=== PATIENT | male | born 1930 | race Hispanic/Latino ===

== ENCOUNTER 2017-05-05 14:44 | Inpatient (IN) | payer MEDICARE, OTHER ==
[2017-05-05 14:56] VITALS: BMI 27.8
[2017-05-05 15:01] LABS: BASO # 0.03 K/mm3 (0.0-2.0); BASO % 0.3 % (0.0-3.0); EOS # 0.3 (0.0-0.7); EOS % 2.4 % (1.5-5.0); GRAN # 7.86 (1.4-6.5); HEMATOCRIT 38.8 % (42.0-52.0); LYMPH # 1.8 (1.2-3.4); MEAN CORPUSCULAR HEMOGLOBIN 29.7 pg (25.0-35.0); MEAN CORPUSCULAR HGB CONC 34.5 g/dl (31.0-37.0); MEAN PLATELET VOLUME 9.4 fl (7.0-11.0); MONO # 0.8 (0.1-0.6); MONO % 7.3 % (1.0-6.0); RED CELL DISTRIBUTION WIDTH 13.1 % (11.5-14.5); WHITE BLOOD COUNT 10.8 10^3/ul (4.5-11.0)
[2017-05-05 15:05] LABS: VENOUS BLOOD GAS BASE EXCESS 0.5 mmol/L (0.0-2.0)
[2017-05-05 15:09] LABS: ALB/GLOB RATIO 1.7 (1.1-1.8); ALKALINE PHOSPHATASE 93 U/L (38-126); ALT/SGPT 28 U/L (7-56); AST/SGOT 26 U/L (17-59); BILIRUBIN,TOTAL 0.5 mg/dL (0.2-1.3); BLOOD UREA NITROGEN 17 mg/dL (7-21); CALCIUM 9.3 mg/dL (8.4-10.5); CARBON DIOXIDE 23 mmol/L (21-33); CHLORIDE 102 mmol/L (98-107); GFR AFRICAN-AMERICAN > 60; GLUCOSE,RANDOM 160 mg/dL (70-110); POTASSIUM 3.7 mmol/L (3.6-5.0); SODIUM 136 mmol/L (132-148); TOTAL PROTEIN 6.8 g/dL (5.8-8.3)
--- NOTE | 2017-05-05 15:09 | RAD ---
HISTORY: tube placement COMPARISON: No prior. FINDINGS: LUNGS: No active pulmonary disease. PLEURA: No significant pleural effusion identified, no pneumothorax apparent. CARDIOVASCULAR: Normal. OSSEOUS STRUCTURES: No significant abnormalities. VISUALIZED UPPER ABDOMEN: Normal. OTHER FINDINGS: Endotracheal tube in satisfactory position IMPRESSION: No active disease.
[2017-05-05 15:19] LABS: INR 1.1 (0.93-1.08); PARTIAL THROMBOPLASTIN TIME 22.8 Seconds (25.1-36.5)
[2017-05-05 15:23] LABS: TROPONIN I < 0.01 ng/mL
[2017-05-05] MEDS ORDERED: Propofol 10 mg/ml 1,000 MG/100 ML VIAL IV PRN (15:25)
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
--- NOTE | 2017-05-05 15:28 | CT ---
PROCEDURE: CT HEAD WITHOUT CONTRAST. HISTORY: ams COMPARISON: None available. TECHNIQUE: Axial computed tomography images were obtained through the head/brain without intravenous contrast. Radiation dose: Total exam DLP = 814 mGy-cm. This CT exam was performed using one or more of the following dose reduction techniques: Automated exposure control, adjustment of the mA and/or kV according to patient size, and/or use of iterative reconstruction technique. FINDINGS: HEMORRHAGE: There is a massive intraparenchymal hemorrhage in the right hemisphere measuring 6.4 x 8.5 cm. This also extends into the violet. There is intraventricular hemorrhage. BRAIN: There is severe mass effect with 30 mm of midline shift to the left. The findings were discussed with Dr. Evans at 3:20 p.m. VENTRICLES: Intraventricular blood. Severe compression of the lateral ventricles CALVARIUM: Unremarkable. PARANASAL SINUSES: Unremarkable as visualized. No significant inflammatory changes. MASTOID AIR CELLS: Unremarkable as visualized. No inflammatory changes. OTHER FINDINGS: None. IMPRESSION: There is a massive intraparenchymal hemorrhage in the right hemisphere measuring 6.4 x 8.5 cm. This also extends into the violet. There is intraventricular hemorrhage.
[2017-05-05 15:34] LABS: CHOLESTEROL 241 mg/dL (130-200)
[2017-05-05] MEDS: Nicardipine 20 MG/200 ML 20 MG/200 ML BAG IV PRN ×3 (15:35→22:39)
[2017-05-05] MEDS ORDERED: Succinylcholine 200 mg/10 ml Inj IV STA (15:38)
[2017-05-05] MEDS ORDERED: Etomidate 20 mg/10ml Inj IVP STA (15:38)
[2017-05-05 15:51] LABS: ABG MECHANICAL RATE 15; ARTERIAL BLOOD GAS PH 7.34 (7.35-7.45); ATERIAL BLOOD GAS PEEP 5
[2017-05-05 15:55] LABS: PH,URINE 5.5 (4.7-8.0); URINE BILIRUBIN NEGATIVE (NEGATIVE); URINE BLOOD TRACE-INTACT (NEGATIVE); URINE GLUCOSE (UA) NEGATIVE (NEGATIVE); URINE KETONE TRACE mg/dL (NEGATIVE); URINE LEUKOCYTE ESTERASE NEGATIVE Leu/uL (NEGATIVE); URINE PROTEIN 30 mg/dL (<30 mg/dL); URINE UROBILINOGEN 0.2 E.U./dL (<1 E.U./dL)
[2017-05-05 15:59] LABS: URINE APPEARANCE CLEAR (CLEAR); URINE COLOR YELLOW (YELLOW)
[2017-05-05 16:00] LABS: URINE BACTERIA FEW (NEG); URINE EPITHELIAL CELLS 0 - 2 /hpf (0-5); URINE WBC 0 - 2 /hpf (0-6)
--- NOTE | 2017-05-05 16:35 | CP.PCM.CON ---
<Karsten Hein - Last Filed: 05/05/17 17:08> History of Present Illness - History of Present Illness History of Present Illness: Karsten Hein D.O. PGY-2, Critical Care Consultation Note 86 year old male with a PMH of HLD and "skin cancer" who presented [place] [facility] on 05/05/17 for complaints of altered mental status. Patient was intubated in the ER upon arrival. present at bedside states that he was at home by the neighbors on the floor at approximately 230pm. Patient at this time unable to provide any information. states that he is normally fully functional and was actually at the dermatologists office earlier today. Review of Systems - Review of Systems Systems not reviewed;Unavailable: Intubated Past Patient History - Infectious Disease Hx of Infectious Diseases: None - Tetanus Immunizations Tetanus Immunization: Up to Date - Past Social History Smoking Status: Never Smoked - HEMATOLOGICAL/ONCOLOGICAL Hx Cancer: Yes (prostate) - PSYCHIATRIC Hx Psychophysiologic Disorder: No Hx Anxiety: No Hx Bipolar Disorder: No Hx Depression: No Hx Emotional Abuse: No Hx Hallucinations: No Hx Panic Symptoms: No Hx Post Traumatic Stress Disorder: No Hx Psychosis: No Hx Physical Abuse: No Hx Schizophrenia: No Hx Sexual Abuse: No Hx Substance Use: No - SURGICAL HISTORY Other/Comment: hernia repair - ANESTHESIA Hx Anesthesia: Yes Hx Anesthesia Reactions: No Hx Malignant Hyperthermia: No Meds Allergies/Adverse Reactions: Allergies Allergy/AdvReac Type Severity Reaction Status Date / Time No Known Allergies Allergy Verified 04/21/13 14:16 - Medications Medications: Current Medications Nicardipine HCl (Cardene Iv Premix) 20 mg in 200 mls @ 50 mls/hr IV .Q4H PRN; Protocol; 5 MG/HR PRN Reason: TITRATE PER MD ORDER Last Admin: 05/05/17 15:35 Dose: 50 mls/hr Propofol (Diprivan) 1,000 mg in 100 mls @ 2.643 mls/hr IV .Q24H PRN; Protocol; 5 MCG/KG/MIN PRN Reason: TITRATE PER MD ORDER Last Admin: 05/05/17 15:48 Dose: 2.643 mls/hr Physical Exam - Constitutional Appears: Other (well developed, elderly male, intubated) - Head Exam Head Exam: ATRAUMATIC, NORMOCEPHALIC - Eye Exam Additional comments: fixed and dilated - ENT Exam ENT Exam: Mucous Membranes Moist - Neck Exam Additional comments: soft, supple - Respiratory Exam Respiratory Exam: Clear to Auscultation Bilateral. absent: Rales, Rhonchi, Wheezes - Cardiovascular Exam Cardiovascular Exam: RRR, +S1, +S2. absent: Gallop, Rubs - GI/Abdominal Exam GI & Abdominal Exam: Normal Bowel Sounds, Soft. absent: Distended - Extremities Exam Extremities exam: Positive for: normal capillary refill. Negative for: pedal edema - Neurological Exam Additional comments: intubated, not awake, not alert, not opening eyes to painful stimuli, not corneal reflex, pupils fixed and dilated ~5mm, gag reflex present, cough reflex present, no movement with painful stimuli to trunk or upper extremities, no tracking, withdraws to painful stimuli from BL LE, does not follow commands - Skin Skin Exam: Dry, Warm Results - Vital Signs Recent Vital Signs: Last Vital Signs Temp 97.1 F L 05/05/17 14:58 Pulse 87 05/05/17 15:35 Resp 18 05/05/17 14:50 BP 170/102 H 05/05/17 15:35 Pulse Ox 98 05/05/17 14:50 - Labs Result Diagrams: 05/05/17 14:55 05/05/17 14:55 Assessment & Plan - Assessment and Plan (Free Text) Assessment: 86 year old male with a PMH of HLD and "skin cancer" who presented to [facility] for altered mental status, intubated in the ER and found to have a massive intraparenchymal hemorrhage in the right hemispheres measuring 6.4 x 8.5cm extending into the violet with intraventricular hemorrhage. Plan: 1. Hemorrhagic stroke Head CT shows massive intraparenchymal hemorrhage in the right hemisphere measuring 6.4 x 8.5cm extending into violet with intraventricular hemorrhage Neuro consulted Neurosurgery consulted, states no surgical intervention indicated Will take to ICU for closer monitoring and tight blood pressure control Discussed at length with who stated that patient has a living will stating that he is DNR, order placed Neurochecks q4h x12 Continue propofol sedation and cardene for blood pressure control as BP 225/139 Intubated PRVC 400/15/5/40% 2. HLD Holding lipitor GI/DVT ppx: Protonix BID, SCDs Line: 20G R hand, 20G R AC Feed: npo, OG in place to intermittent suction García: in place, clear yellow urine Patient was seen and examined and case was discussed at length with attending physician. - Date & Time Date: 05/05/17 Time: 16:30 <Mike Atkins - Last Filed: 05/05/17 17:44> Meds - Medications Medications: Current Medications Nicardipine HCl (Cardene Iv Premix) 20 mg in 200 mls @ 50 mls/hr IV .Q4H PRN; Protocol; 5 MG/HR PRN Reason: TITRATE PER MD ORDER Last Admin: 05/05/17 15:35 Dose: 50 mls/hr Propofol (Diprivan) 1,000 mg in 100 mls @ 2.643 mls/hr IV .Q24H PRN; Protocol; 5 MCG/KG/MIN PRN Reason: TITRATE PER MD ORDER Last Admin: 05/05/17 15:48 Dose: 2.643 mls/hr Levetiracetam 750 mg/ Sodium (Chloride) 107.5 mls @ 460 mls/hr IV Q12 LENI Pantoprazole Sodium (Protonix Inj) 40 mg IVP Q12 LENI Results - Vital Signs Recent Vital Signs: Last Vital Signs Temp 97.1 F L 05/05/17 14:58 Pulse 87 05/05/17 15:35 Resp 18 05/05/17 14:50 BP 170/102 H 05/05/17 15:35 Pulse Ox 98 05/05/17 14:50 - Labs Result Diagrams: 05/05/17 14:55 05/05/17 14:55 Assessment & Plan - Assessment and Plan (Free Text) Plan: Patient seen and examined, case discussed with resident, agree with note, with following, additions/exceptions: Patient is 86yo male with PMhx of "skin cancer" presented with AMS. Last seen normal around noon today, CT Head revealed massive intraparenchymal hemorrhage in the right hemisphere measuring 6.4 x 8.5cm extending into violet with intraventricular hemorrhage. Neurosurgery consulted, no acute NSG intervention. Pt placed on cardene drip for BP control, Keppra IV for seizure ppx. Pt has advanced directives, as per the , and the patient is DNR. IPH, 3.4 x 8.5cm Hypertensive emergency HLD Recommend: - cont with vent support, ABG acceptable - no active ID issues - BP control, Cardene drip - confirm NGT placement - follow up Neurology, Neurosurgery - Keppra IV BID - Repeat CT Head in the AM - keep SBP<140 - GI ppx, PPI - DVT ppx, SCDs Critical care time 45 minutes
--- NOTE | 2017-05-05 17:01 | CP.PCM.CON ---
History of Present Illness - History of Present Illness History of Present Illness: Neurology consult note for Dr. Cartwright's service cc: altered mental status HPI: Patient is a 86yo male with past medical history of hyperlipidemia who was brought in by ambulance for altered mental status. Per chart and , patient was found unresponsive by his neighbors at around 14:30. Prior to that he was running errands including going to [employer] and to his dermatologists office. At baseline, gladys is a normally independent in his activites of daily living. Limited history available due to patient being intubated and sedated on evaluation. 12point ROS and full medical history unobtainable due to patient status. On evaluation in the ED, code stroke was called which revealed intraparenchymal hemorrhage in the right hemisphere measuring 6.4 x 8.5cm extending into violet with intraventricular hemorrhage, severe mass effect with 30mm of midline shift to the left. Past Patient History - Infectious Disease Hx of Infectious Diseases: None - Tetanus Immunizations Tetanus Immunization: Up to Date - Past Social History Smoking Status: Never Smoked - HEMATOLOGICAL/ONCOLOGICAL Hx Cancer: Yes (prostate) - PSYCHIATRIC Hx Psychophysiologic Disorder: No Hx Anxiety: No Hx Bipolar Disorder: No Hx Depression: No Hx Emotional Abuse: No Hx Hallucinations: No Hx Panic Symptoms: No Hx Post Traumatic Stress Disorder: No Hx Psychosis: No Hx Physical Abuse: No Hx Schizophrenia: No Hx Sexual Abuse: No Hx Substance Use: No - SURGICAL HISTORY Other/Comment: hernia repair - ANESTHESIA Hx Anesthesia: Yes Hx Anesthesia Reactions: No Hx Malignant Hyperthermia: No Meds Allergies/Adverse Reactions: Allergies Allergy/AdvReac Type Severity Reaction Status Date / Time No Known Allergies Allergy Verified 04/21/13 14:16 - Medications Medications: Current Medications Nicardipine HCl (Cardene Iv Premix) 20 mg in 200 mls @ 50 mls/hr IV .Q4H PRN; Protocol; 5 MG/HR PRN Reason: TITRATE PER MD ORDER Last Admin: 05/05/17 15:35 Dose: 50 mls/hr Propofol (Diprivan) 1,000 mg in 100 mls @ 2.643 mls/hr IV .Q24H PRN; Protocol; 5 MCG/KG/MIN PRN Reason: TITRATE PER MD ORDER Last Admin: 05/05/17 15:48 Dose: 2.643 mls/hr Physical Exam - Constitutional Appears: In Acute Distress - Head Exam Head Exam: ATRAUMATIC, NORMAL INSPECTION, NORMOCEPHALIC - Eye Exam Additional comments: pupils fixed and dilated 6mm no corneal reflex - ENT Exam ENT Exam: Mucous Membranes Moist - Neck Exam Neck exam: Positive for: Normal Inspection. Negative for: Lymphadenopathy, Tenderness, Thyromegaly - Respiratory Exam Respiratory Exam: Clear to Auscultation Bilateral. absent: Rales, Rhonchi, Wheezes - Cardiovascular Exam Cardiovascular Exam: RRR, +S1, +S2. absent: Gallop, JVD, Rubs - GI/Abdominal Exam GI & Abdominal Exam: Soft. absent: Distended, Firm, Guarding, Rebound, Tenderness - Neurological Exam Additional comments: intubated and sedated on propofol drip unresponsive to painful stimuli in the upper extremity babinski upward going bilaterally - Expanded Neurological Exam Expanded Cranial nerves: Gag Reflex: Normal Upper motor neuron: Babinski Sign: Abnormal Left, Abnormal Right Coma Scale Eye Opening: None Coma Scale Motor Response: None Coma Scale Verbal: None Coma Scale Total: 3 - Skin Skin Exam: Dry, Intact, Normal Color, Warm Results - Vital Signs Recent Vital Signs: Last Vital Signs Temp 97.1 F L 05/05/17 14:58 Pulse 87 05/05/17 15:35 Resp 18 05/05/17 14:50 BP 170/102 H 05/05/17 15:35 Pulse Ox 98 05/05/17 14:50 - Labs Result Diagrams: 05/05/17 14:55 05/05/17 14:55 Assessment & Plan - Assessment and Plan (Free Text) Plan: 86yo male with history of hyperlipidemia presents with altered mental status secondary to hemorrhagic stroke 1. Hemorrhagic stroke 2. Hyperlipidemia -Head CT reviewed; revealed intraparenchymal hemorrhage in the right hemisphere measuring 6.4 x 8.5cm extending into violet with intraventricular hemorrhage, midline shift of 30mm to the left -Neurosurgery consulted - no surgical intervention recommended at this time -Recommend continue with cardene drip to maintain SBP < 140 -Recommend continue with seizure prophylaxis with keppra -Neurochecks -Seizure precautions -Aspiration precautions -Prognosis guarded -Further recommendations as per Dr. Cartwright Patient seen and case discussed/reviewed with attending physician, Dr. Cartwright - Date & Time Date: 05/05/17 Time: 17:05
[2017-05-05] MEDS ORDERED: Pneumococcal 23-Valent Vaccine IM ONE (19:40)
[2017-05-05] MEDS ORDERED: Influenza Vaccine 60 mcg/0.5 mL SYR (4YR UP) IM ONE (19:40)
[2017-05-05 20:03] LABS: ARTERIAL BLOOD GAS HCO3 22.1 mmol/L (21-28); ARTERIAL BLOOD GAS PH 7.42 (7.35-7.45)
[2017-05-06] MEDS: Nicardipine 20 MG/200 ML 20 MG/200 ML BAG IV PRN ×4 (02:39→19:32)
[2017-05-06 06:25] LABS: BASO # 0.01 K/mm3 (0.0-2.0); BASO % 0.1 % (0.0-3.0); EOS % 0.2 % (1.5-5.0); GRAN # 11.99 (1.4-6.5); GRAN % 86.7 % (50.0-68.0); HEMATOCRIT 40.4 % (42.0-52.0); LYMPH # 0.7 (1.2-3.4); MEAN CELL VOLUME 87.1 fl (80.0-105.0); MEAN CORPUSCULAR HEMOGLOBIN 29.5 pg (25.0-35.0); MEAN CORPUSCULAR HGB CONC 33.9 g/dl (31.0-37.0); MEAN PLATELET VOLUME 9.4 fl (7.0-11.0); MONO # 1.1 (0.1-0.6); PLATELET COUNT 266 10^3/uL (120.0-450.0); RED CELL DISTRIBUTION WIDTH 13.5 % (11.5-14.5); WHITE BLOOD COUNT 13.8 10^3/ul (4.5-11.0)
[2017-05-06 06:45] LABS: ALB/GLOB RATIO 1.7 (1.1-1.8); ALKALINE PHOSPHATASE 81 U/L (38-126); ALT/SGPT 27 U/L (7-56); AST/SGOT 64 U/L (17-59); BILIRUBIN,TOTAL 0.8 mg/dL (0.2-1.3); BLOOD UREA NITROGEN 17 mg/dL (7-21); CALCIUM 9.2 mg/dL (8.4-10.5); CARBON DIOXIDE 27 mmol/L (21-33); CHLORIDE 103 mmol/L (95-110); GFR AFRICAN-AMERICAN > 60; GLUCOSE,RANDOM 169 mg/dL (70-110); POTASSIUM 4.7 mmol/L (3.6-5.0); SODIUM 138 mmol/L (132-148); TOTAL PROTEIN 6.6 g/dL (5.8-8.3)
[2017-05-06 06:56] VITALS: RESP 20
[2017-05-06 07:01] VITALS: TEMP 100.2
--- NOTE | 2017-05-06 07:02 | CP.PCM.PN ---
Subjective - Date & Time of Evaluation Date of Evaluation: 05/06/17 Time of Evaluation: 07:00 - Subjective Subjective: Documentation for Code Status: As per conversation with , who is the medical POA, the patient is DNR/DNI. Patient was intubated in the ED prior to being informed of the DNI status. Extensive conversation was conducted informing the of the significance of the DNR/DNI. confirms patients DNR status. Objective - Vital Signs/Intake and Output Vital Signs (last 24 hours): Temp Pulse Resp BP Pulse Ox 98.4 F 83 20 151/80 H 100 05/05/17 21:00 05/06/17 06:38 05/06/17 06:55 05/06/17 06:38 05/06/17 06:55 Intake and Output: 05/05/17 05/06/17 18:59 06:59 Intake Total 0 1936 Output Total 600 2500 Balance -600 -564 - Medications Medications: Current Medications Nicardipine HCl (Cardene Iv Premix) 20 mg in 200 mls @ 50 mls/hr IV .Q4H PRN; Protocol; 5 MG/HR PRN Reason: TITRATE PER MD ORDER Last Admin: 05/06/17 06:38 Dose: 5 mg/hr, 50 mls/hr Propofol (Diprivan) 1,000 mg in 100 mls @ 2.643 mls/hr IV .Q24H PRN; Protocol; 5 MCG/KG/MIN PRN Reason: TITRATE PER MD ORDER Last Admin: 05/05/17 15:48 Dose: 2.643 mls/hr Levetiracetam 750 mg/ Sodium (Chloride) 107.5 mls @ 460 mls/hr IV Q12 LENI Last Admin: 05/05/17 21:34 Dose: 460 mls/hr Potassium Chloride 20 meq/ (Sodium Chloride) 1,010 mls @ 50 mls/hr IV .[id number] [facility] Last Admin: 05/05/17 21:34 Dose: 50 mls/hr Ondansetron HCl (Zofran Inj) 4 mg IVP Q6H PRN PRN Reason: Nausea/Vomiting Last Admin: 05/06/17 06:36 Dose: 4 mg Pantoprazole Sodium (Protonix Inj) 40 mg IVP Q12 [facility] Last Admin: 05/05/17 21:03 Dose: 40 mg - Labs Labs: 05/06/17 05:00 PT 12.0 SECONDS (9.4-12.5) 05/05/17 14:55 INR 1.10 (0.93-1.08) H 05/05/17 14:55 APTT 22.8 Seconds (25.1-36.5) L 05/05/17 14:55
[2017-05-06 07:19] LABS: ARTERIAL BLOOD GAS HCO3 26.8 mmol/L (21-28); ARTERIAL BLOOD GAS O2 CAPACITY 19.1 mL/dl (16-24); ARTERIAL BLOOD GAS PH 7.48 (7.35-7.45); ARTERIAL BLOOD HGB O2 SAT 95.8 % (95.0-98.0); HHB 0.6 % (0-5); METHEMOGLOBIN 1.5 % (0.0-3.0)
--- NOTE | 2017-05-06 08:49 | CON ---
SUMMARY: I was asked to review a CAT scan of a patient who came in completely unresponsive, an 86-year-old gentleman, massive intracranial hemorrhage which extends throughout the entire deep right hemisphere into the violet and medulla. This is essentially incompatible with survival and I would absolutely not recommend any aggressive measures be taken. Unfortunately again, this patient is beyond salvaging. John Hansen MD
[2017-05-06 08:53] LABS: ANISOCYTOSIS SLIGHT; BAND 2 % (0-2); NEUTROPHIL 90 % (50.0-70.0); PLATELET ESTIMATE NORMAL (NORMAL)
[2017-05-06] MEDS ORDERED: POTASSIUM CH IV SCH (09:15)
[2017-05-06] MEDS ORDERED: D5W IV SCH (09:15)
[2017-05-06] MEDS ORDERED: SODIUM CHLORIDE IV SCH (09:15)
[2017-05-06] MEDS ORDERED: Sodium Chloride 0.9% 1,000 ML IV STA (09:24)
[2017-05-06 09:33] LABS: TROPONIN I 7.34 ng/mL
--- NOTE | 2017-05-06 09:42 | CP.PCM.CON ---
History of Present Illness - History of Present Illness History of Present Illness: Palliative consult requested by Dr Tevin Diaz Reason: Goals of care 86 year old male with history of prostate cancer and HLD who was found on the floor at home by his son. last had contact with him an hour and half before this event. Patient unresponsive and intubated upon arrival to ED. CT of the head showed a massive intraparenchymal hemorrhage in the right hemisphere measuring 6.4 X 8.5 cm, this extends to the violet, there is also intraventricular hemorrhage. Chest x ray negative for active disease. PMHx: prostate cancer s/p RT, skin cancer, HLD, back pain. Social History: Non smoker, occasional alcohol, no drug misuse. , lives with spouse and son. Family History: Non contributory. Advance Care Planning:The patient has an Advanced Directive at home. states he is DNR/DNI. 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 - MUSCULOSKELETAL/RHEUMATOLOGICAL Hx Falls: Yes (found on floor at home today) - PSYCHIATRIC Hx Psychophysiologic Disorder: No Hx Anxiety: No Hx Bipolar Disorder: No Hx Depression: No Hx Emotional Abuse: No Hx Hallucinations: No Hx Panic Symptoms: No Hx Post Traumatic Stress Disorder: No Hx Psychosis: No Hx Physical Abuse: No Hx Schizophrenia: No Hx Sexual Abuse: No Hx Substance Use: No - SURGICAL HISTORY Other/Comment: hernia repair - ANESTHESIA Hx Anesthesia: Yes Hx Anesthesia Reactions: No Hx Malignant Hyperthermia: No Meds Allergies/Adverse Reactions: Allergies Allergy/AdvReac Type Severity Reaction Status Date / Time No Known Allergies Allergy Verified 04/21/13 14:16 - Medications Medications: Current Medications Nicardipine HCl (Cardene Iv Premix) 20 mg in 200 mls @ 50 mls/hr IV .Q4H PRN; Protocol; 5 MG/HR PRN Reason: TITRATE PER MD ORDER Last Admin: 05/06/17 06:38 Dose: 5 mg/hr, 50 mls/hr Propofol (Diprivan) 1,000 mg in 100 mls @ 2.643 mls/hr IV .Q24H PRN; Protocol; 5 MCG/KG/MIN PRN Reason: TITRATE PER MD ORDER Last Admin: 05/05/17 15:48 Dose: 2.643 mls/hr Levetiracetam 750 mg/ Sodium (Chloride) 107.5 mls @ 460 mls/hr IV Q12 [facility]ENI Last Admin: 05/05/17 21:34 Dose: 460 mls/hr Potassium Chloride 20 meq/ (Sodium Chloride) 1,010 mls @ 100 mls/hr IV .Q10H6M LENI Sodium Chloride (Sodium Chloride 0.9%) 1,000 mls @ 999 mls/hr IV .Q1H1M STA Stop: 05/06/17 10:24 Desmopressin Acetate 1 mcg/ (Sodium Chloride) 50.25 mls @ 100 mls/hr IV ONCE ONE Stop: 05/06/17 09:53 Ondansetron HCl (Zofran Inj) 4 mg IVP Q6H PRN PRN Reason: Nausea/Vomiting Last Admin: 05/06/17 06:36 Dose: 4 mg Pantoprazole Sodium (Protonix Inj) 40 mg IVP Q12 LENI Last Admin: 05/05/17 21:03 Dose: 40 mg Physical Exam - Constitutional Appears: Chronically Ill - Head Exam Head Exam: NORMAL INSPECTION - Eye Exam Eye Exam: Normal appearance, PERRL - ENT Exam ENT Exam: Mucous Membranes Moist - Neck Exam Neck exam: Positive for: Normal Inspection - Respiratory Exam Respiratory Exam: Decreased Breath Sounds - Cardiovascular Exam Cardiovascular Exam: REGULAR RHYTHM, +S1 - GI/Abdominal Exam GI & Abdominal Exam: Normal Bowel Sounds, Soft - Extremities Exam Extremities exam: Positive for: normal inspection, pedal pulses present - Back Exam Back exam: NORMAL INSPECTION - Neurological Exam Neurological exam: Altered - Skin Skin Exam: Dry, Warm - Additional Findings Additional findings: Palliative performance scale rating 10% Results - Vital Signs Recent Vital Signs: Last Vital Signs Temp 100.2 F H 05/06/17 04:00 Pulse 83 05/06/17 06:38 Resp 20 05/06/17 06:55 BP 151/80 H 05/06/17 06:38 Pulse Ox 100 05/06/17 06:55 - Labs Result Diagrams: 05/06/17 05:00 05/06/17 05:00 Labs: Laboratory Results - last 24 hr 05/05/17 05/05/17 05/06/17 17:45 20:00 05:00 WBC RBC Hgb Hct MCV MCH MCHC RDW Plt Count MPV Gran % Lymph % (Auto) [place] % (Auto) Eos % (Auto) Baso % (Auto) Gran # Lymph # [place] # Eos # Baso # Neutrophils % (Manual) Band Neutrophils % Lymphocytes % (Manual) Monocytes % (Manual) Platelet Evaluation Anisocytosis (manual) pCO2 34 L pO2 148.0 H HCO3 22.1 ABG pH 7.42 ABG Total CO2 23.1 ABG O2 Saturation 99.5 H ABG O2 Content ABG Base Excess -1.7 ABG Hemoglobin ABG Carboxyhemoglobin POC ABG HHb (Measured) ABG Methemoglobin ABG O2 Capacity ABG Potassium 3.7 Hgb O2 Saturation Sodium 135.0 138 Chloride 103.0 103 Glucose 214 H Lactate 4.0 H* FiO2 40.0 Potassium 4.7 Carbon Dioxide 27 Anion Gap 13 BUN 17 Creatinine 1.0 Est GFR ( Amer) > 60 Est GFR (Non-Af Amer) > 60 Random Glucose 169 H Calcium 9.2 Total Bilirubin 0.8 AST 64 H D ALT 27 Alkaline Phosphatase 81 Troponin I 7.34 H* D Total Protein 6.6 Albumin 4.2 Globulin 2.5 Albumin/Globulin Ratio 1.7 Arterial Blood Potassium 3.7 Blood Type Confirm O POSITIVE 05/06/17 05/06/17 05:00 05:30 WBC 13.8 H D RBC 4.64 Hgb 13.7 L Hct 40.4 L MCV 87.1 MCH 29.5 MCHC 33.9 RDW 13.5 Plt Count 266 MPV 9.4 Gran % 86.7 H Lymph % (Auto) 5.0 L [place] % (Auto) 8.0 H Eos % (Auto) 0.2 L Baso % (Auto) 0.1 Gran # 11.99 H Lymph # 0.7 L [place] # 1.1 H Eos # 0.0 Baso # 0.01 Neutrophils % (Manual) 90 H Band Neutrophils % 2 Lymphocytes % (Manual) 4 L Monocytes % (Manual) 4 Platelet Evaluation Normal Anisocytosis (manual) Slight pCO2 36 pO2 152.0 H HCO3 26.8 ABG pH 7.48 H ABG Total CO2 27.9 ABG O2 Saturation 99.4 H ABG O2 Content 19.0 ABG Base Excess 3.4 H ABG Hemoglobin 13.9 ABG Carboxyhemoglobin 2.0 H POC ABG HHb (Measured) 0.6 ABG Methemoglobin 1.5 ABG O2 Capacity 19.1 ABG Potassium Hgb O2 Saturation 95.8 Sodium Chloride Glucose Lactate FiO2 40.0 Potassium Carbon Dioxide Anion Gap BUN Creatinine Est GFR ( Amer) Est GFR (Non-Af Amer) Random Glucose Calcium Total Bilirubin AST ALT Alkaline Phosphatase Troponin I Total Protein Albumin Globulin Albumin/Globulin Ratio Arterial Blood Potassium Blood Type Confirm Assessment & Plan - Assessment and Plan (Free Text) Assessment: 86 year old male with history of HLD, prostate cancer was found unresponsive at home. Found to have a massive intraparenchymal hemorrhage in the right hemisphere which extends onto the violet, there is also intaventricular hemorrhage. The patient's is at bedside. She is aware of the extent of patients brain injury. She expressed that her has Living Will and that he would not want to be kept alive on respirator and with feeding tube. Extensive discussion ensued involving future goals of care. Patients awaiting her children to come She wants there input before making any decision regarding his care. I later met with patients , daughter and son. Family has spoken with neurologist and understands the gravity of patients situation. Family wants to wait 24 hours before making decision regarding goals of care and extubation. Psychosocial support given. 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 Time spent with family in goals of care discussion and advance care planning, 40 minutes Plan: Palliative support Advance care planning
--- NOTE | 2017-05-06 09:52 | CARD ---
APPROVED REPORT EKG Measurement Heart [id number] <Conclusion> Sinus rhythm with premature supraventricular complexes LAD STTW changes
--- NOTE | 2017-05-06 10:06 | RAD ---
HISTORY: intubated COMPARISON: 05/05/2017 FINDINGS: LUNGS: No active pulmonary disease. PLEURA: No significant pleural effusion identified, no pneumothorax apparent. CARDIOVASCULAR: Normal. OSSEOUS STRUCTURES: No significant abnormalities. VISUALIZED UPPER ABDOMEN: Normal. OTHER FINDINGS: Endotracheal tube and nasogastric tube in satisfactory position IMPRESSION: No active disease.
--- NOTE | 2017-05-06 10:54 | CP.CCUPN ---
<Jez Moreno - Last Filed: 05/06/17 10:40> CCU Subjective - Physician Review Subjective (Free Text): Subjective: Patient seen and examined at bedside. Resting comfortably in bed. Experienced several bouts of nonbloody nonbilious emesis throughout the night. ROS cannot be attained at this time due to altered mental status. Physical Examination: - Constitutional Appears: In Acute Distress - Head Exam Head Exam: ATRAUMATIC, NORMAL INSPECTION, NORMOCEPHALIC - Eye Exam Additional comments: pupils fixed and dilated 6mm no corneal reflex bilaterally - ENT Exam ENT Exam: Mucous Membranes Moist - Neck Exam Neck exam: Positive for: Normal Inspection. Negative for: Lymphadenopathy, Tenderness, Thyromegaly - Respiratory Exam Respiratory Exam: Clear to Auscultation Bilateral. absent: Rales, Rhonchi, Wheezes - Cardiovascular Exam Cardiovascular Exam: RRR, +S1, +S2. absent: Gallop, JVD, Rubs - GI/Abdominal Exam GI & Abdominal Exam: Soft. absent: Distended, Firm, Guarding, Rebound, Tenderness - Neurological Exam Additional comments: intubated and sedated on propofol drip unresponsive to painful stimuli in the upper extremity responsive to painful stimuli in the lower extremity - Skin Skin Exam: Dry, Intact, Normal Color, Warm Assessment and Plan: 86 year old male with a PMH of HLD and "skin cancer" who presented to [facility] ER for altered mental status, intubated in the ER and found to have a massive intraparenchymal hemorrhage in the right hemispheres measuring 6.4 x 8.5cm extending into the violet with intraventricular hemorrhage. Hemorrhagic stroke - Head CT shows massive intraparenchymal hemorrhage in the right hemisphere measuring 6.4 x 8.5cm extending into violet with intraventricular hemorrhage - Neuro consulted- appreciate recs - Neurosurgery consulted, states no surgical intervention indicated - As per , the patient has a living will stating that he is DNR, order placed, states she will meet with children and decide the next plan of action - Neurochecks q4h x12 - Continue propofol sedation - Intubated PRVC 400/15/5/45% - Continue cardene and keppra Diabetes Inspidius - UO increase overnight in to the morning - given 1 liter NS bolus - ddavp ordered - continue to monitor urine output Elevated Troponins - from <0.01 to 7.34, likely neurogenic trops vs NSTEMI - patient is not a candidate for anticoagulation due to intraparenchymal hemorrhage - ECHO ordered and appreciated - EKG stat- will be reviewed and appreciated - will consider cardiology consult pending family's decision HLD - Holding lipitor due to transaminitis Prophylaxis - Protonix BID - SCDs Line: 20G R hand, 20G R AC Feed: npo, OG in place to intermittent suction García: in place, clear yellow urine Patient seen, case discussed with, and plan approved by attending physician, Dr. Atkins. 05/06/17 10:54 CCU Objective - Vital Signs / Intake & Output Vital Signs (Last 4 hours): Vital Signs Resp Pulse Ox 05/06/17 06:55 20 100 Intake and Output (Last 8hrs): Intake & Output 05/05/17 05/06/17 05/06/17 22:59 06:59 14:59 Intake Total 1536 400 Output Total 3100 Balance -1564 400 Weight 194 lb 3.2 oz Intake: IV 1536 400 Right Antecubital 1300 Right Hand 36 Oral 0 Output: Urine 2800 Urethral (García) 2800 Emesis 300 Other: Voiding Method Indwelling Catheter # Bowel Movements 0 - Physical Exam Head: Positive for: Atraumatic, Normocephalic Pupils: Positive for: Other ((+)right pupil dilated) Conjunctiva: Positive for: Normal Mouth: Positive for: Moist Mucous Membranes Respiratory/Chest: Positive for: Clear to Auscultation Cardiovascular: Positive for: Regular Rate and Rhythm Abdomen: Negative for: Tenderness, Distention Neurological: Positive for: Other ((+)unresponsive, (+)snoring resp (+)corneal reflex (+)gag reflex). Negative for: Motor Func Grossly Intact - Medications Active Medications: Active Medications Generic Name Dose Route Start Last Admin Trade Name Freq PRN Reason Stop Dose Admin Nicardipine HCl 20 mg in 200 mls @ 50 mls/hr 05/05/17 15:14 05/06/17 06:38 Cardene Iv Premix IV 5 mg/hr .Q4H PRN 50 mls/hr TITRATE PER MD ORDER Administration Protocol 5 MG/HR Propofol 1,000 mg in 100 mls @ 2.643 mls/hr 05/05/17 15:25 05/05/17 15:48 Diprivan IV 2.643 mls/hr .Q24H PRN Administration TITRATE PER MD ORDER Protocol 5 MCG/KG/MIN Levetiracetam 750 mg/ Sodium 107.5 mls @ 460 mls/hr 05/05/17 22:00 05/06/17 10:03 Chloride IV 460 mls/hr Q12 LENI Administration Potassium Chloride 20 meq/ 1,010 mls @ 100 mls/hr 05/06/17 09:15 Sodium Chloride IV .Q10H6M LENI Ondansetron HCl 4 mg 05/05/17 19:52 05/06/17 06:36 Zofran Inj IVP 4 mg Q6H PRN Administration Nausea/Vomiting Pantoprazole Sodium 40 mg 05/05/17 22:00 05/06/17 09:55 Protonix Inj IVP 40 mg Q12 LENI Administration - Patient Studies Lab Studies: Lab Studies 05/06/17 05/06/17 05/06/17 Range/Units 05:30 05:00 05:00 WBC 13.8 H D (4.5-11.0) 10^3/ul RBC 4.64 (3.5-6.1) 10^6/uL Hgb 13.7 L (14.0-18.0) g/dL Hct 40.4 L (42.0-52.0) % MCV 87.1 (80.0-105.0) fl MCH 29.5 (25.0-35.0) pg MCHC 33.9 (31.0-37.0) g/dl RDW 13.5 (11.5-14.5) % Plt Count 266 (120.0-450.0) 10^3/uL MPV 9.4 (7.0-11.0) fl Gran % 86.7 H (50.0-68.0) % Lymph % (Auto) 5.0 L (22.0-35.0) % [place] % (Auto) 8.0 H (1.0-6.0) % Eos % (Auto) 0.2 L (1.5-5.0) % Baso % (Auto) 0.1 (0.0-3.0) % Gran # 11.99 H (1.4-6.5) Lymph # 0.7 L (1.2-3.4) [place] # 1.1 H (0.1-0.6) Eos # 0.0 (0.0-0.7) Baso # 0.01 (0.0-2.0) K/mm3 Neutrophils % (Manual) 90 H (50.0-70.0) % Band Neutrophils % 2 (0-2) % Lymphocytes % (Manual) 4 L (22.0-35.0) % Monocytes % (Manual) 4 (1.0-6.0) % Platelet Evaluation Normal (NORMAL) Anisocytosis (manual) Slight pCO2 36 (35-45) mm/Hg pO2 152.0 H (80-100) mm/Hg HCO3 26.8 (21-28) mmol/L ABG pH 7.48 H (7.35-7.45) ABG Total CO2 27.9 (22-28) mmol.L ABG O2 Saturation 99.4 H (95-98) % ABG O2 Content 19.0 (15-23) ML/dl ABG Base Excess 3.4 H (-2.0-3.0) mmol/L ABG Hemoglobin 13.9 (11.7-17.4) g/dL ABG Carboxyhemoglobin 2.0 H (0.5-1.5) % POC ABG HHb (Measured) 0.6 (0-5) % ABG Methemoglobin 1.5 (0.0-3.0) % ABG O2 Capacity 19.1 (16-24) mL/dl ABG Potassium (3.6-5.2) mmol/L Hgb O2 Saturation 95.8 (95.0-98.0) % Sodium 138 (132-148) mmol/L Chloride 103 (98-107) mmol/L Glucose (75-110) mg/dl Lactate (0.7-2.1) mmol/L FiO2 40.0 % Potassium 4.7 (3.6-5.0) mmol/L Carbon Dioxide 27 (21-33) mmol/L Anion Gap 13 (10-20) BUN 17 (7-21) mg/dL Creatinine 1.0 (0.8-1.5) mg/dL Est GFR ( Amer) > 60 Est GFR (Non-Af Amer) > 60 Random Glucose 169 H (70-110) mg/dL Calcium 9.2 (8.4-10.5) mg/dL Total Bilirubin 0.8 (0.2-1.3) mg/dL AST 64 H D (17-59) U/L ALT 27 (7-56) U/L Alkaline Phosphatase 81 (38-126) U/L Troponin I 7.34 H* D ng/mL Total Protein 6.6 (5.8-8.3) g/dL Albumin 4.2 (3.0-4.8) g/dL Globulin 2.5 gm/dL Albumin/Globulin Ratio 1.7 (1.1-1.8) Arterial Blood Potassium (3.6-5.2) mmol/L Blood Type Confirm 05/05/17 05/05/17 Range/Units 20:00 17:45 WBC (4.5-11.0) 10^3/ul RBC (3.5-6.1) 10^6/uL Hgb (14.0-18.0) g/dL Hct (42.0-52.0) % MCV (80.0-105.0) fl MCH (25.0-35.0) pg MCHC (31.0-37.0) g/dl RDW (11.5-14.5) % Plt Count (120.0-450.0) 10^3/uL MPV (7.0-11.0) fl Gran % (50.0-68.0) % Lymph % (Auto) (22.0-35.0) % [place] % (Auto) (1.0-6.0) % Eos % (Auto) (1.5-5.0) % Baso % (Auto) (0.0-3.0) % Gran # (1.4-6.5) Lymph # (1.2-3.4) [place] # (0.1-0.6) Eos # (0.0-0.7) Baso # (0.0-2.0) K/mm3 Neutrophils % (Manual) (50.0-70.0) % Band Neutrophils % (0-2) % Lymphocytes % (Manual) (22.0-35.0) % Monocytes % (Manual) (1.0-6.0) % Platelet Evaluation (NORMAL) Anisocytosis (manual) pCO2 34 L (35-45) mm/Hg pO2 148.0 H (80-100) mm/Hg HCO3 22.1 (21-28) mmol/L ABG pH 7.42 (7.35-7.45) ABG Total CO2 23.1 (22-28) mmol.L ABG O2 Saturation 99.5 H (95-98) % ABG O2 Content (15-23) ML/dl ABG Base Excess -1.7 (-2.0-3.0) mmol/L ABG Hemoglobin (11.7-17.4) g/dL ABG Carboxyhemoglobin (0.5-1.5) % POC ABG HHb (Measured) (0-5) % ABG Methemoglobin (0.0-3.0) % ABG O2 Capacity (16-24) mL/dl ABG Potassium 3.7 (3.6-5.2) mmol/L Hgb O2 Saturation (95.0-98.0) % Sodium 135.0 (132-148) mmol/L Chloride 103.0 (98-107) mmol/L Glucose 214 H (75-110) mg/dl Lactate 4.0 H* (0.7-2.1) mmol/L FiO2 40.0 % Potassium (3.6-5.0) mmol/L Carbon Dioxide (21-33) mmol/L Anion Gap (10-20) BUN (7-21) mg/dL Creatinine (0.8-1.5) mg/dL Est GFR ( Amer) Est GFR (Non-Af Amer) Random Glucose (70-110) mg/dL Calcium (8.4-10.5) mg/dL Total Bilirubin (0.2-1.3) mg/dL AST (17-59) U/L ALT (7-56) U/L Alkaline Phosphatase (38-126) U/L Troponin I ng/mL Total Protein (5.8-8.3) g/dL Albumin (3.0-4.8) g/dL Globulin gm/dL Albumin/Globulin Ratio (1.1-1.8) Arterial Blood Potassium 3.7 (3.6-5.2) mmol/L Blood Type Confirm O POSITIVE Laboratory Results - last 24 hr 10/23/17 10/23/17 10/24/17 17:45 20:00 05:00 WBC RBC Hgb Hct MCV MCH MCHC RDW Plt Count MPV Gran % Lymph % (Auto) [place] % (Auto) Eos % (Auto) Baso % (Auto) Gran # Lymph # [place] # Eos # Baso # Neutrophils % (Manual) Band Neutrophils % Lymphocytes % (Manual) Monocytes % (Manual) Platelet Evaluation Anisocytosis (manual) pCO2 34 L pO2 148.0 H HCO3 22.1 ABG pH 7.42 ABG Total CO2 23.1 ABG O2 Saturation 99.5 H ABG O2 Content ABG Base Excess -1.7 ABG Hemoglobin ABG Carboxyhemoglobin POC ABG HHb (Measured) ABG Methemoglobin ABG O2 Capacity ABG Potassium 3.7 Hgb O2 Saturation Sodium 135.0 138 Chloride 103.0 103 Glucose 214 H Lactate 4.0 H* FiO2 40.0 Potassium 4.7 Carbon Dioxide 27 Anion Gap 13 BUN 17 Creatinine 1.0 Est GFR ( Amer) > 60 Est GFR (Non-Af Amer) > 60 Random Glucose 169 H Calcium 9.2 Total Bilirubin 0.8 AST 64 H D ALT 27 Alkaline Phosphatase 81 Troponin I 7.34 H* D Total Protein 6.6 Albumin 4.2 Globulin 2.5 Albumin/Globulin Ratio 1.7 Arterial Blood Potassium 3.7 Blood Type Confirm O POSITIVE 05/06/17 05/06/17 05:00 05:30 WBC 13.8 H D RBC 4.64 Hgb 13.7 L Hct 40.4 L MCV 87.1 MCH 29.5 MCHC 33.9 RDW 13.5 Plt Count 266 MPV 9.4 Gran % 86.7 H Lymph % (Auto) 5.0 L [place] % (Auto) 8.0 H Eos % (Auto) 0.2 L Baso % (Auto) 0.1 Gran # 11.99 H Lymph # 0.7 L [place] # 1.1 H Eos # 0.0 Baso # 0.01 Neutrophils % (Manual) 90 H Band Neutrophils % 2 Lymphocytes % (Manual) 4 L Monocytes % (Manual) 4 Platelet Evaluation Normal Anisocytosis (manual) Slight pCO2 36 pO2 152.0 H HCO3 26.8 ABG pH 7.48 H ABG Total CO2 27.9 ABG O2 Saturation 99.4 H ABG O2 Content 19.0 ABG Base Excess 3.4 H ABG Hemoglobin 13.9 ABG Carboxyhemoglobin 2.0 H POC ABG HHb (Measured) 0.6 ABG Methemoglobin 1.5 ABG O2 Capacity 19.1 ABG Potassium Hgb O2 Saturation 95.8 Sodium Chloride Glucose Lactate FiO2 40.0 Potassium Carbon Dioxide Anion Gap BUN Creatinine Est GFR ( Amer) Est GFR (Non-Af Amer) Random Glucose Calcium Total Bilirubin AST ALT Alkaline Phosphatase Troponin I Total Protein Albumin Globulin Albumin/Globulin Ratio Arterial Blood Potassium Blood Type Confirm <Mike Atkins - Last Filed: 05/06/17 12:01> CCU Subjective - Physician Review Subjective (Free Text): 05/06/17 11:55 Patient seen and examined, case discussed with resident, agree with note, with following, additions/exceptions: Patient is 86yo male with PMhx of "skin cancer" presented with AMS. CT Head revealed massive intraparenchymal hemorrhage in the right hemisphere measuring 6.4 x 8.5cm extending into violet with intraventricular hemorrhage. Neurosurgery consulted, no acute NSG intervention. Pt placed on cardene drip for BP control, Keppra IV for seizure ppx. Pt has advanced directives, as per the , and the patient is DNR. Patients troponin 7 today, EKG without ischemic changes, will get echo, and cardiology consult. Seen by palliative care today, patients awaiting for her children to come in to have a discussion. As per my discussion with the , the patient would not have wanted CPR, or any invasive procedures or be prolonged on the ventilator, with artificial feeding. IPH, with intraventricular hemorrhage Hypertensive emergency HLD Elevated troponin Recommend: - cont with vent support, ABG acceptable - no active ID issues - BP control, Cardene drip - follow up Neurology, Neurosurgery - Keppra IV BID - keep SBP<140 - keep HOB elevated - Na >145 - ECHO - cardiology eval - Palliative care follow up - GI ppx, PPI - DVT ppx, SCDs - extremely poor prognosis - Patient is DNR CCU Objective - Vital Signs / Intake & Output Intake and Output (Last 8hrs): Intake & Output 05/05/17 05/06/17 05/06/17 22:59 06:59 14:59 Intake Total 1536 400 Output Total 3100 Balance -1564 400 Weight 194 lb 3.2 oz Intake: IV 1536 400 Right Antecubital 1300 Right Hand 36 Oral 0 Output: Urine 2800 Urethral (Gracía) 2800 Emesis 300 Other: Voiding Method Indwelling Catheter # Bowel Movements 0 - Medications Active Medications: Active Medications Generic Name Dose Route Start Last Admin Trade Name Freq PRN Reason Stop Dose Admin Nicardipine HCl 20 mg in 200 mls @ 50 mls/hr 05/05/17 15:14 05/06/17 06:38 Cardene Iv Premix IV 5 mg/hr .Q4H PRN 50 mls/hr TITRATE PER MD ORDER Administration Protocol 5 MG/HR Propofol 1,000 mg in 100 mls @ 2.643 mls/hr 05/05/17 15:25 05/05/17 15:48 Diprivan IV 2.643 mls/hr .Q24H PRN Administration TITRATE PER MD ORDER Protocol 5 MCG/KG/MIN Levetiracetam 750 mg/ Sodium 107.5 mls @ 460 mls/hr 05/05/17 22:00 05/06/17 10:03 Chloride IV 460 mls/hr Q12 LENI Administration Potassium Chloride 20 meq/ 1,010 mls @ 100 mls/hr 05/06/17 09:15 Sodium Chloride IV .Q10H6M LENI Ondansetron HCl 4 mg 05/05/17 19:52 05/06/17 06:36 Zofran Inj IVP 4 mg Q6H PRN Administration Nausea/Vomiting Pantoprazole Sodium 40 mg 05/05/17 22:00 05/06/17 09:55 Protonix Inj IVP 40 mg Q12 LENI Administration - Patient Studies Lab Studies: Lab Studies 05/06/17 05/06/17 05/06/17 Range/Units 05:30 05:00 05:00 WBC 13.8 H D (4.5-11.0) 10^3/ul RBC 4.64 (3.5-6.1) 10^6/uL Hgb 13.7 L (14.0-18.0) g/dL Hct 40.4 L (42.0-52.0) % MCV 87.1 (80.0-105.0) fl MCH 29.5 (25.0-35.0) pg MCHC 33.9 (31.0-37.0) g/dl RDW 13.5 (11.5-14.5) % Plt Count 266 (120.0-450.0) 10^3/uL MPV 9.4 (7.0-11.0) fl Gran % 86.7 H (50.0-68.0) % Lymph % (Auto) 5.0 L (22.0-35.0) % [place] % (Auto) 8.0 H (1.0-6.0) % Eos % (Auto) 0.2 L (1.5-5.0) % Baso % (Auto) 0.1 (0.0-3.0) % Gran # 11.99 H (1.4-6.5) Lymph # 0.7 L (1.2-3.4) [place] # 1.1 H (0.1-0.6) Eos # 0.0 (0.0-0.7) Baso # 0.01 (0.0-2.0) K/mm3 Neutrophils % (Manual) 90 H (50.0-70.0) % Band Neutrophils % 2 (0-2) % Lymphocytes % (Manual) 4 L (22.0-35.0) % Monocytes % (Manual) 4 (1.0-6.0) % Platelet Evaluation Normal (NORMAL) Anisocytosis (manual) Slight pCO2 36 (35-45) mm/Hg pO2 152.0 H (80-100) mm/Hg HCO3 26.8 (21-28) mmol/L ABG pH 7.48 H (7.35-7.45) ABG Total CO2 27.9 (22-28) mmol.L ABG O2 Saturation 99.4 H (95-98) % ABG O2 Content 19.0 (15-23) ML/dl ABG Base Excess 3.4 H (-2.0-3.0) mmol/L ABG Hemoglobin 13.9 (11.7-17.4) g/dL ABG Carboxyhemoglobin 2.0 H (0.5-1.5) % POC ABG HHb (Measured) 0.6 (0-5) % ABG Methemoglobin 1.5 (0.0-3.0) % ABG O2 Capacity 19.1 (16-24) mL/dl ABG Potassium (3.6-5.2) mmol/L Hgb O2 Saturation 95.8 (95.0-98.0) % Sodium 138 (132-148) mmol/L Chloride 103 (98-107) mmol/L Glucose (75-110) mg/dl Lactate (0.7-2.1) mmol/L FiO2 40.0 % Potassium 4.7 (3.6-5.0) mmol/L Carbon Dioxide 27 (21-33) mmol/L Anion Gap 13 (10-20) BUN 17 (7-21) mg/dL Creatinine 1.0 (0.8-1.5) mg/dL Est GFR ( Amer) > 60 Est GFR (Non-Af Amer) > 60 Random Glucose 169 H (70-110) mg/dL Calcium 9.2 (8.4-10.5) mg/dL Total Bilirubin 0.8 (0.2-1.3) mg/dL AST 64 H D (17-59) U/L ALT 27 (7-56) U/L Alkaline Phosphatase 81 (38-126) U/L Troponin I 7.34 H* D ng/mL Total Protein 6.6 (5.8-8.3) g/dL Albumin 4.2 (3.0-4.8) g/dL Globulin 2.5 gm/dL Albumin/Globulin Ratio 1.7 (1.1-1.8) Arterial Blood Potassium (3.6-5.2) mmol/L Blood Type Confirm 05/05/17 05/05/17 Range/Units 20:00 17:45 WBC (4.5-11.0) 10^3/ul RBC (3.5-6.1) 10^6/uL Hgb (14.0-18.0) g/dL Hct (42.0-52.0) % MCV (80.0-105.0) fl MCH (25.0-35.0) pg MCHC (31.0-37.0) g/dl RDW (11.5-14.5) % Plt Count (120.0-450.0) 10^3/uL MPV (7.0-11.0) fl Gran % (50.0-68.0) % Lymph % (Auto) (22.0-35.0) % [place] % (Auto) (1.0-6.0) % Eos % (Auto) (1.5-5.0) % Baso % (Auto) (0.0-3.0) % Gran # (1.4-6.5) Lymph # (1.2-3.4) [place] # (0.1-0.6) Eos # (0.0-0.7) Baso # (0.0-2.0) K/mm3 Neutrophils % (Manual) (50.0-70.0) % Band Neutrophils % (0-2) % Lymphocytes % (Manual) (22.0-35.0) % Monocytes % (Manual) (1.0-6.0) % Platelet Evaluation (NORMAL) Anisocytosis (manual) pCO2 34 L (35-45) mm/Hg pO2 148.0 H (80-100) mm/Hg HCO3 22.1 (21-28) mmol/L ABG pH 7.42 (7.35-7.45) ABG Total CO2 23.1 (22-28) mmol.L ABG O2 Saturation 99.5 H (95-98) % ABG O2 Content (15-23) ML/dl ABG Base Excess -1.7 (-2.0-3.0) mmol/L ABG Hemoglobin (11.7-17.4) g/dL ABG Carboxyhemoglobin (0.5-1.5) % POC ABG HHb (Measured) (0-5) % ABG Methemoglobin (0.0-3.0) % ABG O2 Capacity (16-24) mL/dl ABG Potassium 3.7 (3.6-5.2) mmol/L Hgb O2 Saturation (95.0-98.0) % Sodium 135.0 (132-148) mmol/L Chloride 103.0 (98-107) mmol/L Glucose 214 H (75-110) mg/dl Lactate 4.0 H* (0.7-2.1) mmol/L FiO2 40.0 % Potassium (3.6-5.0) mmol/L Carbon Dioxide (21-33) mmol/L Anion Gap (10-20) BUN (7-21) mg/dL Creatinine (0.8-1.5) mg/dL Est GFR ( Amer) Est GFR (Non-Af Amer) Random Glucose (70-110) mg/dL Calcium (8.4-10.5) mg/dL Total Bilirubin (0.2-1.3) mg/dL AST (17-59) U/L ALT (7-56) U/L Alkaline Phosphatase (38-126) U/L Troponin I ng/mL Total Protein (5.8-8.3) g/dL Albumin (3.0-4.8) g/dL Globulin gm/dL Albumin/Globulin Ratio (1.1-1.8) Arterial Blood Potassium 3.7 (3.6-5.2) mmol/L Blood Type Confirm O POSITIVE Laboratory Results - last 24 hr 05/05/17 05/05/17 05/06/17 17:45 20:00 05:00 WBC RBC Hgb Hct MCV MCH MCHC RDW Plt Count MPV Gran % Lymph % (Auto) [place] % (Auto) Eos % (Auto) Baso % (Auto) Gran # Lymph # [place] # Eos # Baso # Neutrophils % (Manual) Band Neutrophils % Lymphocytes % (Manual) Monocytes % (Manual) Platelet Evaluation Anisocytosis (manual) pCO2 34 L pO2 148.0 H HCO3 22.1 ABG pH 7.42 ABG Total CO2 23.1 ABG O2 Saturation 99.5 H ABG O2 Content ABG Base Excess -1.7 ABG Hemoglobin ABG Carboxyhemoglobin POC ABG HHb (Measured) ABG Methemoglobin ABG O2 Capacity ABG Potassium 3.7 Hgb O2 Saturation Sodium 135.0 138 Chloride 103.0 103 Glucose 214 H Lactate 4.0 H* FiO2 40.0 Potassium 4.7 Carbon Dioxide 27 Anion Gap 13 BUN 17 Creatinine 1.0 Est GFR ( Amer) > 60 Est GFR (Non-Af Amer) > 60 Random Glucose 169 H Calcium 9.2 Total Bilirubin 0.8 AST 64 H D ALT 27 Alkaline Phosphatase 81 Troponin I 7.34 H* D Total Protein 6.6 Albumin 4.2 Globulin 2.5 Albumin/Globulin Ratio 1.7 Arterial Blood Potassium 3.7 Blood Type Confirm O POSITIVE 05/06/17 05/06/17 05:00 05:30 WBC 13.8 H D RBC 4.64 Hgb 13.7 L Hct 40.4 L MCV 87.1 MCH 29.5 MCHC 33.9 RDW 13.5 Plt Count 266 MPV 9.4 Gran % 86.7 H Lymph % (Auto) 5.0 L [place] % (Auto) 8.0 H Eos % (Auto) 0.2 L Baso % (Auto) 0.1 Gran # 11.99 H Lymph # 0.7 L [place] # 1.1 H Eos # 0.0 Baso # 0.01 Neutrophils % (Manual) 90 H Band Neutrophils % 2 Lymphocytes % (Manual) 4 L Monocytes % (Manual) 4 Platelet Evaluation Normal Anisocytosis (manual) Slight pCO2 36 pO2 152.0 H HCO3 26.8 ABG pH 7.48 H ABG Total CO2 27.9 ABG O2 Saturation 99.4 H ABG O2 Content 19.0 ABG Base Excess 3.4 H ABG Hemoglobin 13.9 ABG Carboxyhemoglobin 2.0 H POC ABG HHb (Measured) 0.6 ABG Methemoglobin 1.5 ABG O2 Capacity 19.1 ABG Potassium Hgb O2 Saturation 95.8 Sodium Chloride Glucose Lactate FiO2 40.0 Potassium Carbon Dioxide Anion Gap BUN Creatinine Est GFR ( Amer) Est GFR (Non-Af Amer) Random Glucose Calcium Total Bilirubin AST ALT Alkaline Phosphatase Troponin I Total Protein Albumin Globulin Albumin/Globulin Ratio Arterial Blood Potassium Blood Type Confirm EKG/Cardiology Studies: Cardiology / EKG Studies 05/06/17 10:52 EKG [ELECTROCARDIOGRAM] Stat Comment: Reason For Exam: positive troponins
--- NOTE | 2017-05-06 13:33 | CARD ---
APPROVED REPORT EKG Measurement Heart [id number] <Conclusion> Sinus rhythm with premature atrial complex Left axis deviation Minimal voltage criteria for LVH, may be normal variant STTW changes c/w ischemia Prolonged QT Peaked T waves V 3 - 6
--- NOTE | 2017-05-06 13:47 | CP.PCM.PN ---
Subjective - Date & Time of Evaluation Date of Evaluation: 05/06/17 Time of Evaluation: 11:55 - Subjective Subjective: Neurology progress note for Dr. Cartwright's service Patient seen and examined with family at bedside. No acute overnight events reported. Urine output over the last 12hrs has been >2 liters. Patient given ddAVP. EEG ordered. Discussed poor prognosis with family. ROS limited due to patient status. Objective - Vital Signs/Intake and Output Vital Signs (last 24 hours): Temp Pulse Resp BP Pulse Ox 100.2 F H 83 20 151/80 H 100 05/06/17 04:00 05/06/17 06:38 05/06/17 06:55 05/06/17 06:38 05/06/17 06:55 Intake and Output: 05/06/17 05/06/17 06:59 18:59 Intake Total 1936 Output Total 2500 Balance -564 - Medications Medications: Current Medications Nicardipine HCl (Cardene Iv Premix) 20 mg in 200 mls @ 50 mls/hr IV .Q4H PRN; Protocol; 5 MG/HR PRN Reason: TITRATE PER MD ORDER Last Admin: 05/06/17 06:38 Dose: 5 mg/hr, 50 mls/hr Propofol (Diprivan) 1,000 mg in 100 mls @ 2.643 mls/hr IV .Q24H PRN; Protocol; 5 MCG/KG/MIN PRN Reason: TITRATE PER MD ORDER Last Admin: 05/05/17 15:48 Dose: 2.643 mls/hr Levetiracetam 750 mg/ Sodium (Chloride) 107.5 mls @ 460 mls/hr IV Q12 LENI Last Admin: 05/06/17 10:03 Dose: 460 mls/hr Potassium Chloride 20 meq/ (Sodium Chloride) 1,010 mls @ 100 mls/hr IV .Q10H6M LENI Ondansetron HCl (Zofran Inj) 4 mg IVP Q6H PRN PRN Reason: Nausea/Vomiting Last Admin: 05/06/17 06:36 Dose: 4 mg Pantoprazole Sodium (Protonix Inj) 40 mg IVP Q12 LENI Last Admin: 05/06/17 09:55 Dose: 40 mg - Labs Labs: 05/06/17 05:00 05/06/17 05:00 PT 12.0 SECONDS (9.4-12.5) 05/05/17 14:55 INR 1.10 (0.93-1.08) H 05/05/17 14:55 APTT 22.8 Seconds (25.1-36.5) L 05/05/17 14:55 - Head Exam Head Exam: ATRAUMATIC, NORMOCEPHALIC - Eye Exam Additional comments: pupils fixed and dilated ~5mm no corneal reflex - Neck Exam Neck Exam: Normal Inspection - Respiratory Exam Respiratory Exam: Clear to Ausculation Bilateral. absent: Rales, Rhonchi, Wheezes - Cardiovascular Exam Cardiovascular Exam: +S1, +S2. absent: Gallop, JVD, Rubs, Murmur - GI/Abdominal Exam GI & Abdominal Exam: Soft. absent: Distended, Firm, Guarding, Tenderness, Mass , Rebound - Neurological Exam Neurological Exam: absent: Alert, Awake Additional comments: intubated, unresponsive babinski reflexes upward going bilaterally - Skin Skin Exam: Dry, Intact, Normal Color, Warm Assessment and Plan - Assessment and Plan (Free Text) Plan: 86yo male with history of hyperlipidemia presents with altered mental status secondary to hemorrhagic stroke 1. Hemorrhagic stroke 2. Hyperlipidemia -Head CT reviewed; revealed intraparenchymal hemorrhage in the right hemisphere measuring 6.4 x 8.5cm extending into violet with intraventricular hemorrhage, midline shift of 30mm to the left -Neurosurgery consulted - no surgical intervention recommended at this time -Recommend continue with cardene drip to maintain SBP < 140 -Recommend continue with seizure prophylaxis with keppra -EEG ordered and pending -Neurochecks -Seizure precautions -Aspiration precautions -Prognosis guarded -Further recommendations as per Dr. Cartwright Patient seen and case discussed/reviewed with attending physician, Dr. Carwtright
[2017-05-06 15:48] VITALS: BP 155/76; PULSE 81; O2SAT 98
[2017-05-06] MEDS: Potassium Chloride 20 MEQ in Sodium Chloride 0.45% 1,000 ML IV SCH ×2 (17:23→18:19)
--- NOTE | 2017-05-06 20:29 | CP.PCM.PRO ---
Pronouncement of Note - Clinical Findings Physical Exam: No Response Verbal/Painful Stimuli, Absent Peripheral Pulses{ Carotid & Femoral}, Absent Heart & Breath Sounds, No Pupillary Light Reflex, Pupils Fixed & Dilated, Absence of Vital Signs - Pronouncement Time Time of Pronouncement of : 20:10 - Notifications Pronouncement Notifications: Atending Notified Assistant To The President Notified: No - Autopsy Autopsy Requested: No - [place]: [id number] Additional Comments: Primary Physcian Dr. Diaz notified; EDRS case started, to be completed by attending physician.
--- NOTE | 2017-05-07 09:14 | CARD ---
APPROVED REPORT EXAM: Two-dimensional and M-mode echocardiogram with Doppler and color Doppler. INDICATION ELEVATED TROPONIN 2D DIMENSIONS Left Atrium (2D)3.9 (1.6-4.0cm)IVSd0.9 (0.7-1.1cm) LVDd4.8 (3.9-5.9cm)PWd1.1 (0.7-1.1cm) LVDs3.3 (2.5-4.0cm)FS (%) 30.1 % LVEF (%)57.3 (>50%) M-Mode DIMENSIONS Aortic Root3.60 (2.2-3.7cm)Aortic Cusp Exc.1.60 (1.5-2.0cm) Aortic Valve AoV Peak Bmrqawln982.0cm/sAoV VTI35.0cmAO Peak GR.16mmHg LVOT Peak Bloygike228.0cm/sLVOT VTI23.80cmAO Mean GR.8mmHg AI P 1/2 Chpe182nh Mitral Valve MV E Ujfqfwnc10.0cm/sMV A Smntighx526.0cm/sE/A ratio0.8 TDI Lateral E' Peak V9.07cm/sMedial E' Peak V6.34cm/sE/Lateral E'8.8 E/Medial E'12.6 Pulmonary Valve PV Peak Lmhzuvtu414.0cm/sPV Peak Grad.4mmHg Tricuspid Valve TR Peak Barnrlle194fw/sRAP [id number] Peak Gr.42mmHg [id number] LEFT VENTRICLE The left ventricle is normal size. There is normal left ventricular wall thickness. The left ventricular function is normal. The left ventricular ejection fraction is within the normal range. There is normal LV segmental wall motion. RIGHT VENTRICLE The right ventricle is normal size. There is normal right ventricular wall thickness. The right ventricular systolic function is normal. ATRIA The left atrium size is normal. The right atrium size is normal. The interatrial septum is intact with no evidence for an atrial septal defect. AORTIC VALVE The aortic valve is normal in structure. There is mild to moderate aortic regurgitation. There is no aortic valvular stenosis. MITRAL VALVE The mitral valve is normal in structure. Mitral regurgitation is mild. TRICUSPID VALVE The tricuspid valve is normal in structure. There is moderate tricuspid regurgitation. There is mild to moderate pulmonary hypertension. PULMONIC VALVE The pulmonary valve is normal in structure. GREAT VESSELS The aortic root is normal in size. The IVC is normal in size and collapses >50% with inspiration. PERICARDIAL EFFUSION There is no pleural effusion. There is no pericardial effusion. <Conclusion> Normal chamber size. Normal LV systolic function. Mild MR. Mild to moderate AI. Moderate TR. RVSP of 52 mm Hg recorded.
--- NOTE | 2017-05-07 11:23 | HP ---
CHIEF COMPLAINT AND HISTORY OF PRESENT ILLNESS This is an 86-year-old male who is coming into the hospital with changes in mental status and unresponsive. The patient, who was last seen at [facility] about 12 and found by neighbors at 2:30; the patient was found unresponsive. The patient had been running errands. He has been independent. Most of the information was taken from the medical records, talking to the staff, and his . The patient is not able to give information because of being intubated. He was brought in for further evaluation. The patient was intubated and CAT scan showed there was an intraventricular hemorrhage with the mass effect. PAST MEDICAL HISTORY: Dyslipidemia and prostate cancer. ALLERGIES: NO KNOWN DRUG ALLERGIES. HOME MEDICATIONS: Aspirin, Flexeril, Lipitor, and Trileptal. SOCIAL HISTORY: Drinks socially, does not smoke. FAMILY HISTORY: Unable to assess. PHYSICAL EXAMINATION: VITAL SIGNS: Temperature is 100.2, pulse of 83, blood pressure is 157/74, respirations are 15 and O2 saturation 100%. GENERAL: The patient lying in bed, uncomfortable, and in no acute distress. HEENT: Anicteric sclerae. Unable to do eye full exam. The patient's eyes are nonreactive to light. Positive ETT. NECK: No JVD, anterior and posterior adenopathy, thyromegaly, or bruits. CARDIOVASCULAR: S1 and S2 regular. No murmur, rubs, or gallop. LUNGS: Clear to auscultation bilaterally. No wheezes, rales, or rhonchi. ABDOMEN: Soft. Limited exam. No hepatosplenomegaly. EXTREMITIES: No cyanosis, clubbing, or edema. NEUROLOGIC: Nonreactive pupils. Limited exam. Neutral Babinski. PSYCHIATRIC: Unable to assess. GENITOURINARY: No CVA tenderness. VASCULAR: 2+ pulses in the carotid pulses and pedal pulses. SKIN: No erythema or nodules SPINE: Shows normal curvature. EXTREMITIES: No cyanosis and clubbing, no edema. LABORATORY DATA: White count of 10.8, repeat is 13.8, hemoglobin is 13.4, and platelet count is 295. INR is 1.1. ABG done shows a pH of 7.34, PCO2 is 37, lactate is 4. The patient's LDL is 134. Creatinine is 1.1. Urine done shows, blood is trace, nitrites are negative. CT of the head done shows massive intraparenchymal hemorrhage in the right hemisphere measuring 6.4 x 8.5 cm. There is shift. Chest x-ray done shows no active disease. EKG shows sinus rhythm at 86. No ST-T changes. QTC is 1440. The T waves abnormally shaped in V4 through V6, downsloping. Troponin is 0.01. ASSESSMENT: 1. Intraparenchymal hemorrhage of the right hemisphere, 6.4 x 8.5 cm. There is midline shift. 2. Prostate cancer. 3. Dyslipidemia. 4. Do not resuscitate. PLAN: The patient is going to be admitted to the hospital. He is critically ill with an intracranial hemorrhage. The patient is on Keppra for seizure prevention. The patient is on nicardipine because of the hypertension. The patient is on Protonix daily. The patient is on IV fluids. I am concerned, this patient may be developing diabetes insipidus. The patient's urine output has been 2800. The patient may need more free water. I will change the patient's IV fluids to half normal saline and increase the amount with calcium. I did speak to the patient's to give an update on the patient's diagnoses and plan of care. I would get palliative care consultation with Hallie Bobo. The patient is DNR. Overall prognosis is poor. Shane Diaz MD
--- NOTE | 2017-05-08 11:55 | EEG ---
CONDITION OF THE RECORDING: The patient has a history of hemorrhagic stroke. PAST MEDICAL HISTORY: Prostate CA and skin caner. MEDICATIONS: Keppra, Ativan, propofol. DESCRIPTION: Background activity of this tracing was beta mostly theta activity all over the most of it is delta activity, 3 to 5 cycles per second. The patient is unresponsive and no seizure activity noted. IMPRESSION: Bilateral cerebral dysfunction, severe. Shaun Cartwright MD
== END 2017-05-06 20:10 | DRG 65 ==
LOC: ED 14:44 → CCU 15:54 → ED 16:18
PROVIDERS: ADMIT Internal Medicine Nephrology; ATTEND Internal Medicine Nephrology
PROC: 5A1935Z Respiratory Ventilation, Less than 24 Consecutive Hours (ICD-10-PCS; principal; 2017-05-05)
PROC: 0BH17EZ Insertion of Endotracheal Airway into Trachea, Via Natural or Artificial Opening (ICD-10-PCS; 2017-05-05)
DX: I61.5 Nontraumatic intracerebral hemorrhage, intraventricular (principal); I16.1 Hypertensive emergency; E23.2 Diabetes insipidus; C61 Malignant neoplasm of prostate; Z66 Do not resuscitate; E78.00 Pure hypercholesterolemia, unspecified; Z85.828 Personal history of other malignant neoplasm of skin; Z79.82 Long term (current) use of aspirin; Z79.899 Other long term (current) drug therapy